=== PATIENT | female | born 1980 | race Caucasian/White ===

== ENCOUNTER 2016-07-20 04:55 | Emergency (ER) | payer OTHER ==
--- NOTE | 2016-07-20 07:03 | EDDOCDS ---
Physician Documentation [facility] Name: Rosemarie Kelly Age: 36 yrs Sex: Female : 1980 Arrival Date: 07/20/2016 Time: 04:55 Bed 18 Private MD: Disposition: 07/20/16 06:52 Discharged to Home/Self Care. Impression: Radiculopathy, cervical region. - Condition is Stable. - Discharge Instructions: Cervical Radiculopathy, Uwik-gh-Qkex. - Prescriptions for Diclofenac Sodium 75 mg Oral Tablet, Delayed Release (E.C.) - take 1 tablet by ORAL route 2 times per day; 30 tablet. Robaxin- 750 750 mg Oral Tablet - take 1 tablet by ORAL route every 6 hours As needed; 40 tablet. - Medication Reconciliation, Local Pharmacy Hours form. - [facility] up[facility]; When: Call to arrange an appointment; Reason: Further diagnostic work-up, Recheck today's complaints, Continuance of care, To establish care. - Problem is new. - Symptoms are unchanged. Historical: - Allergies: SULFA (SULFONAMIDES) (Rash); - Home Meds: 1. none - PMHx: none; - PSHx: (2004); Hernia repair; left knee; - Social history: Smoking status: Patient states was never smoker of tobacco. No barriers to communication noted, The patient speaks fluent Faroese, Speaks appropriately for age. - Family history: Not pertinent. - : The pt / caregiver states he / she is not on anticoagulants. Home medication list is obtained from the patient. - Exposure Risk Screening:: None identified. 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 4 in. (162.56 cm) (R); Pain 8/10; 06:59 BP 130 / 78; Pulse 80; Resp 18; Temp 97.4; Pulse Ox 98% ; Pain 7/10; ko2 05:06 Body Mass Index 37.76 (99.79 kg, 162.56 cm) [facility] [place] Signatures: Ivanna Kunz, RN RN g1 Omero Tyler PA PA btw Jasmin Yung,RN RN ko2 MTDD
--- NOTE | 2016-07-20 07:04 | EDDOCDS ---
Nurse's Notes [facility] Name: Rosemarie Kelly Age: 36 yrs Sex: Female : 1980 Arrival Date: 07/20/2016 Time: 04:55 Bed 18 Private MD: Diagnosis: Radiculopathy, cervical region Presentation: 07/20 05:05 Presenting complaint: Patient states: Pain in left arm from shoulder down to fingers. kmg1 Started last evening. Suicide/Homicide risk assessment- the patient denies having any suicidal and/or homicidal ideations and does not present with any other emotional, behavioral or mental health complaints. Status: Patient is not a director of career services or dependent. Transition of care: patient was not received from another setting of care. 05:05 Acuity: WILI Level 5 km 05:05 Method Of Arrival: Walkin/Carried/Asstd km 05:11 Adult Sepsis Screening: The patient does not have new or worsening altered mentation. kmg1 Patient's respiratory rate is less than 22. Systolic blood pressure is greater than 100. Patient has a qSOFA score of 0- Negative Sepsis Screen. Triage Assessment: 05:06 General: Appears uncomfortable, Behavior is appropriate for age, cooperative, pleasant. kmg1 Pain: Location: left scapular area and anterior aspect of left shoulder Pain currently is 8 out of 10 on a pain scale. Pain radiates to left arm Quality of pain is described as sharp, shooting, pulsating. HIV screening NA for this visit Offered previously. Neurological: Level of Consciousness is awake, alert. Musculoskeletal: Reports pain in left arm. 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 none - PMHx: none; - PSHx: (2004); Hernia repair; left knee; - Social history: Smoking status: Patient states was never smoker of tobacco. No barriers to communication noted, The patient speaks fluent Albanian, Speaks appropriately for age. - Family history: Not pertinent. - : The pt / caregiver states he / she is not on anticoagulants. Home medication list is obtained from the patient. - Exposure Risk Screening:: None identified. Screenin:01 Screening information is obtained from the patient. Screening information is obtained ko2 from the patient. Fall risk: No risks identified. Assistance ADL's: requires no assistance with activities of daily living. Abuse/DV Screen: The patient / caregiver reports he/she is: not in a situation that causes fear, pain or injury. Nutritional screening: No deficits noted. Advance Directives: Currently, there is no health care proxy. There is no active DNR order. There is no living will. There is no Power of Field Service Engineer. home support is adequate. Assessment: 05:27 General: Appears uncomfortable, Behavior is cooperative. Pain: Location: left arm and ko2 back and anterior aspect of left shoulder and left scapular area Pain currently is 8 out of 10 on a pain scale. Neurological: Level of Consciousness is awake, alert, Oriented to person, place, time. Respiratory: Airway is patent Respiratory effort is even, unlabored. Derm: Skin is normal. 07:01 General: Appears uncomfortable, Behavior is cooperative. Pain: Pain currently is 7 out ko2 of 10 on a pain scale. Neurological: Level of Consciousness is awake, alert. Respiratory: Airway is patent Respiratory effort is even, unlabored. Derm: Skin is normal. Vital Signs: 05:06 BP 140 / 79; Pulse 85; Resp 18; Temp 97.7(TE); Pulse Ox 97% on R/A; Weight 99.79 kg [facility] [place] (R); Height 5 ft. 4 in. (162.56 cm) (R); Pain 8/10; 06:59 BP 130 / 78; Pulse 80; Resp 18; Temp 97.4; Pulse Ox 98% ; Pain 7/10; ko2 05:06 Body Mass Index 37.76 (99.79 kg, 162.56 cm) [facility] [place] Vitals: 05:06 Log In Time: July 20, 2016 at 04:55. [facility] [place] ED Course: 04:56 Patient visited by Teresa Kaufman. [facility] 04:56 Patient moved to Waiting [facility] 05:06 Triage Initiated [facility] [place] 05:12 Jasmin Yung RN is Primary Nurse. km 05:12 Patient moved to 18 km 05:51 Patient visited by Jasmin Yung RN. ko2 06:45 Omero Tyler PA is PHCP. btw 06:45 Umang Stokes DO is Attending Physician. btw 06:46 Patient visited by Omero Tyler PA. btw 06:[address] [facility] is Referral Physician. btw 07:02 The patient / caregiver is instructed regarding the plan of care and ED course. ko2 07:02 No IV's were initiated during this patient's visit. No procedures done that require ko2 assistance. Order Results: There are currently no results for this order. Outcome: 06:52 Discharge ordered by Provider. btw 07:02 Discharge Assessment: Patient awake, alert and oriented x 3. No cognitive and/or ko2 functional deficits noted. Patient verbalized understanding of disposition instructions. patient administered narcotics - yes. The following High Risk Discharge criteria are identified: None. Discharged to home ambulatory, with friend. Condition: stable. Discharge instructions given to patient, Instructed on discharge instructions, follow up and referral plans. medication usage, Demonstrated understanding of instructions, medications, Pt was receptive of discharge instructions/ teaching. No special radiology studies were completed. Property sent home with patient. 07:03 Patient left the ED. ko2 Signatures: Ivanna Kunz RN RN kmg1 Omero Tyler PA PA btJasmin Ang RN RN ko2 [facility]
--- NOTE | 2016-07-22 08:04 | EDDOCDS ---
Physician Documentation [facility] Name: Rosemarie Kelly Age: 36 yrs Sex: Female : 1980 Arrival Date: 07/20/2016 Time: 04:55 Bed 18 Private MD: Disposition: 07/20/16 06:52 Discharged to Home/Self Care. Impression: Radiculopathy, cervical region. - Condition is Stable. - Discharge Instructions: Cervical Radiculopathy, Ncny-lg-Crep. - Prescriptions for Diclofenac Sodium 75 mg Oral Tablet, Delayed Release (E.C.) - take 1 tablet by ORAL route 2 times per day; 30 tablet. Robaxin- 750 750 mg Oral Tablet - take 1 tablet by ORAL route every 6 hours As needed; 40 tablet. - Medication Reconciliation, Local Pharmacy Hours form. - Follow up: [facility]; When: Call to arrange an appointment; Reason: Further diagnostic work-up, Recheck today's complaints, Continuance of care, To establish care. - Problem is new. - Symptoms are unchanged. Historical: - Allergies: SULFA (SULFONAMIDES) (Rash); - Home Meds: 1. none - PMHx: none; - PSHx: (2004); Hernia repair; left knee; - Social history: Smoking status: Patient states was never smoker of tobacco. No barriers to communication noted, The patient speaks fluent Belarusian, Speaks appropriately for age. - Family history: Not pertinent. - : The pt / caregiver states he / she is not on anticoagulants. Home medication list is obtained from the patient. - Exposure Risk Screening:: None identified. 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 4 in. (162.56 cm) (R); Pain 8/10; 06:59 BP 130 / 78; Pulse 80; Resp 18; Temp 97.4; Pulse Ox 98% ; Pain 7/10; ko2 05:06 Body Mass Index 37.76 (99.79 kg, 162.56 cm) [facility] [place] MDM: 07:14 [facility] Payment Agreement was scanned into [employer] and attached to record. pm4 13:07 T-Sheet-- Draft Copy was scanned into [employer] and attached to record. gb Signatures: Ivanna Kunz, AMAYA RN kmg1 Rebecca Nicole, Reg Reg gb Omero Tyler PA PA btw Ogden, Kari, RN RN ko2 Grant Adhikari, Reg Reg pm4 The chart was reviewed and I authenticate all verbal orders and agree with the evaluation and treatment provided.Attachments: 07:14 [facility] Payment Agreement pm4 13:07 T-Sheet-- Draft Copy gb Chart Complete MTDD
--- NOTE | 2016-07-22 08:04 | EDDOCDS ---
Physician Documentation [facility] Name: Rosemarie Kelly Age: 36 yrs Sex: Female : 1980 Arrival Date: 07/20/2016 Time: 04:55 Bed 18 Private MD: Disposition: 07/20/16 06:52 Discharged to Home/Self Care. Impression: Radiculopathy, cervical region. - Condition is Stable. - Discharge Instructions: Cervical Radiculopathy, Znxr-[id number]. - Prescriptions for Diclofenac Sodium 75 mg Oral Tablet, Delayed Release (E.C.) - take 1 tablet by ORAL route 2 times per day; 30 tablet. Robaxin- 750 750 mg Oral Tablet - take 1 tablet by ORAL route every 6 hours As needed; 40 tablet. - Medication Reconciliation, Local Pharmacy Hours form. - Follow up: [facility]; When: Call to arrange an appointment; Reason: Further diagnostic work-up, Recheck today's complaints, Continuance of care, To establish care. - Problem is new. - Symptoms are unchanged. Historical: - Allergies: SULFA (SULFONAMIDES) (Rash); - Home Meds: 1. none - PMHx: none; - PSHx: (2004); Hernia repair; left knee; - Social history: Smoking status: Patient states was never smoker of tobacco. No barriers to communication noted, The patient speaks fluent Hungarian, Speaks appropriately for age. - Family history: Not pertinent. - : The pt / caregiver states he / she is not on anticoagulants. Home medication list is obtained from the patient. - Exposure Risk Screening:: None identified. 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 4 in. (162.56 cm) (R); Pain 8/10; 06:59 BP 130 / 78; Pulse 80; Resp 18; Temp 97.4; Pulse Ox 98% ; Pain 7/10; ko2 05:06 Body Mass Index 37.76 (99.79 kg, 162.56 cm) [facility] [place] MDM: 07:14 [facility] Payment Agreement was scanned into [employer] and attached to record. pm4 13:07 T-Sheet-- Draft Copy was scanned into [employer] and attached to record. gb Signatures: Ivanna Kunz, AMAYA RN kmg1 Rebecca Nicole, Reg Reg gb Omero Tyler PA PA btw Ogden, Kari, RN RN ko2 Grant Adhikari, Reg Reg pm4 The chart was reviewed and I authenticate all verbal orders and agree with the evaluation and treatment provided.Attachments: 07:14 [facility] Payment Agreement pm4 13:07 T-Sheet-- Draft Copy gb Chart Complete MTDD
--- NOTE | 2016-07-22 08:04 | EDDOCDS ---
Nurse's Notes [facility] Name: Rosemarie Kelly Age: 36 yrs Sex: Female : 1980 Arrival Date: 07/20/2016 Time: 04:55 Bed 18 Private MD: Diagnosis: Radiculopathy, cervical region Presentation: 07/20 05:05 Presenting complaint: Patient states: Pain in left arm from shoulder down to fingers. kmg1 Started last evening. Suicide/Homicide risk assessment- the patient denies having any suicidal and/or homicidal ideations and does not present with any other emotional, behavioral or mental health complaints. Status: Patient is not a access services librarian or dependent. Transition of care: patient was not received from another setting of care. 05:05 Acuity: WILI Level 5 km 05:05 Method Of Arrival: Walkin/Carried/Asstd km 05:11 Adult Sepsis Screening: The patient does not have new or worsening altered mentation. kmg1 Patient's respiratory rate is less than 22. Systolic blood pressure is greater than 100. Patient has a qSOFA score of 0- Negative Sepsis Screen. Triage Assessment: 05:06 General: Appears uncomfortable, Behavior is appropriate for age, cooperative, pleasant. kmg1 Pain: Location: left scapular area and anterior aspect of left shoulder Pain currently is 8 out of 10 on a pain scale. Pain radiates to left arm Quality of pain is described as sharp, shooting, pulsating. HIV screening NA for this visit Offered previously. Neurological: Level of Consciousness is awake, alert. Musculoskeletal: Reports pain in left arm. 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 none - PMHx: none; - PSHx: (2004); Hernia repair; left knee; - Social history: Smoking status: Patient states was never smoker of tobacco. No barriers to communication noted, The patient speaks fluent Upper Sorbian, Speaks appropriately for age. - Family history: Not pertinent. - : The pt / caregiver states he / she is not on anticoagulants. Home medication list is obtained from the patient. - Exposure Risk Screening:: None identified. Screenin:01 Screening information is obtained from the patient. Screening information is obtained ko2 from the patient. Fall risk: No risks identified. Assistance ADL's: requires no assistance with activities of daily living. Abuse/DV Screen: The patient / caregiver reports he/she is: not in a situation that causes fear, pain or injury. Nutritional screening: No deficits noted. Advance Directives: Currently, there is no health care proxy. There is no active DNR order. There is no living will. There is no Power of Technical Support Agent. home support is adequate. Assessment: 05:27 General: Appears uncomfortable, Behavior is cooperative. Pain: Location: left arm and ko2 back and anterior aspect of left shoulder and left scapular area Pain currently is 8 out of 10 on a pain scale. Neurological: Level of Consciousness is awake, alert, Oriented to person, place, time. Respiratory: Airway is patent Respiratory effort is even, unlabored. Derm: Skin is normal. 07:01 General: Appears uncomfortable, Behavior is cooperative. Pain: Pain currently is 7 out ko2 of 10 on a pain scale. Neurological: Level of Consciousness is awake, alert. Respiratory: Airway is patent Respiratory effort is even, unlabored. Derm: Skin is normal. Vital Signs: 05:06 BP 140 / 79; Pulse 85; Resp 18; Temp 97.7(TE); Pulse Ox 97% on R/A; Weight 99.79 kg [facility] [place] (R); Height 5 ft. 4 in. (162.56 cm) (R); Pain 8/10; 06:59 BP 130 / 78; Pulse 80; Resp 18; Temp 97.4; Pulse Ox 98% ; Pain 7/10; ko2 05:06 Body Mass Index 37.76 (99.79 kg, 162.56 cm) [facility] [place] Vitals: 05:06 Log In Time: July 20, 2016 at 04:55. [facility] [place] ED Course: 04:56 Patient visited by Teresa Kaufman. [facility] 04:56 Patient moved to Waiting [facility] 05:06 Triage Initiated [facility] [place] 05:12 Jasmin Yung RN is Primary Nurse. km 05:12 Patient moved to 18 km 05:51 Patient visited by Jasmin Yung RN. ko2 06:45 Omero Tyler PA is PHCP. btw 06:45 Umang Stokes DO is Attending Physician. btw 06:46 Patient visited by Omero Tyler PA. btw 06:51 [facility] is Referral Physician. btw 07:02 The patient / caregiver is instructed regarding the plan of care and ED course. ko2 07:02 No IV's were initiated during this patient's visit. No procedures done that require ko2 assistance. 07:14 [facility] Payment Agreement was scanned into [employer] and attached to record. pm4 13:07 T-Sheet-- Draft Copy was scanned into [employer] and attached to record. gb Order Results: There are currently no results for this order. Outcome: 06:52 Discharge ordered by Provider. btw 07:02 Discharge Assessment: Patient awake, alert and oriented x 3. No cognitive and/or ko2 functional deficits noted. Patient verbalized understanding of disposition instructions. patient administered narcotics - yes. The following High Risk Discharge criteria are identified: None. Discharged to home ambulatory, with friend. Condition: stable. Discharge instructions given to patient, Instructed on discharge instructions, follow up and referral plans. medication usage, Demonstrated understanding of instructions, medications, Pt was receptive of discharge instructions/ teaching. No special radiology studies were completed. Property sent home with patient. 07:03 Patient left the ED. ko2 Signatures: Ivanna Kunz, RN RN kmg1 Rebecca Nicole, Reg Reg gb Omero Tyler PA PA btw Ogden, KariRN RN malinda2 Teresa Kaufman Paul, Reg Reg pm4 Chart Complete MTDD
== END 2016-07-20 07:03 | disposition home or self-care (01) ==
LOC: M ED 04:55
DX: M54.12 Radiculopathy, cervical region (principal); Z88.2 Allergy status to sulfonamides

== ENCOUNTER 2018-09-27 15:34 | Emergency (ER) | payer OTHER ==
[~2018-09-27] VITALS: Ht 162.6 cm; Wt 104.5 kg
[2018-09-27 15:34] VITALS: BP 186/90
[2018-09-27] MEDS ORDERED: MORPHINE 10 MG/ML 1ML VIAL (J2270) IM ONE (16:30)
[2018-09-27] MEDS ORDERED: METHOCARBAMOL 500 MG TAB PO ONE (16:30)
[2018-09-27] MEDS ORDERED: IBUP-1022 PO (17:00)
[2018-09-27] MEDS ORDERED: diphenhydrAMINE 50 MG CAP PO ONE (17:00)
[2018-09-27] MEDS ORDERED: ROBA500T PO (17:00)
== END 2018-09-27 17:25 | disposition home or self-care (01) ==
LOC: M ED 15:34
DX: S39.012A Strain of muscle, fascia and tendon of lower back, initial encounter (principal); X58.XXXA Exposure to other specified factors, initial encounter; Y92.89 Other specified places as the place of occurrence of the external cause; Z88.2 Allergy status to sulfonamides
CPT/HCPCS: 81001; 81025; 96372; 99283; J2270

== ENCOUNTER 2018-11-15 11:19 | Emergency (ER) | payer OTHER ==
[~2018-11-15] VITALS: Ht 162.6 cm; Wt 107.2 kg
[~2018-11-15 11:19] MED LIST: IBUP-1022 PO; ROBA500T PO
[2018-11-15] MEDS ORDERED: NAPROXEN 250 MG TAB PO ONE (13:00)
--- NOTE | 2018-11-15 13:43 | REP ---
RIGHT FOOT, FOUR VIEWS: There is no evidence of an acute fracture, dislocation or intrinsic bone disease. There is moderate posterior calcaneal spurring. IMPRESSION: No fracture or dislocation. Electronically Signed by Magdiel Prado MD 11/16/2018 03:27 P
[2018-11-15] MEDS ORDERED: MOBI4TAB PO (14:05)
[2018-11-15 14:17] VITALS: BP 148/69
== END 2018-11-15 14:36 | disposition home or self-care (01) ==
LOC: M ED 11:19
DX: M77.31 Calcaneal spur, right foot (principal); M25.571 Pain in right ankle and joints of right foot; X58.XXXA Exposure to other specified factors, initial encounter; Y92.511 Restaurant or cafe as the place of occurrence of the external cause; Y93.02 Activity, running; F17.200 Nicotine dependence, unspecified, uncomplicated; Z88.2 Allergy status to sulfonamides

== ENCOUNTER → 2019-11-22 | Outpatient (REF) | payer OTHER ==
[~2019-11-22] MED LIST changes: +IBUP80TA PO; +MEDR4PAK PO; +MOBI4TAB PO
[2019-11-22 20:06] LABS: CHLAMYDIA DNA AMPLIFICATION NEGATIVE (NEGATIVE); GC DNA AMPLIFICATION NEGATIVE (NEGATIVE)
== END ==
LOC: M WUC 15:45
PROVIDERS: ATTEND Physician Assistant
DX: R31.9 Hematuria, unspecified (principal); R11.2 Nausea with vomiting, unspecified; Z11.59 Encounter for screening for other viral diseases
CPT/HCPCS: 87086; 87491; 87591; U0003

== ENCOUNTER 2019-12-04 15:38 | Emergency (ER) | payer OTHER ==
[~2019-12-04] VITALS: Ht 160 cm; Wt 113.5 kg
[2019-12-04 15:38] VITALS: BP 157/94
[~2019-12-04 15:38] MED LIST changes: -IBUP80TA PO; -MEDR4PAK PO
[2019-12-04] MEDS ORDERED: IBUP80TA PO (16:22)
[2019-12-04] MEDS ORDERED: MEDR4PAK PO (16:22)
== END 2019-12-04 16:36 | disposition home or self-care (01) ==
LOC: M ED 15:38
DX: M72.2 Plantar fascial fibromatosis (principal); Z88.2 Allergy status to sulfonamides

== ENCOUNTER 2021-02-10 15:34 | Emergency (ER) | payer OTHER ==
[~2021-02-10] VITALS: Ht 162.6 cm; Wt 112.2 kg
[~2021-02-10 15:34] MED LIST changes: +IBUP80TA PO; +MEDR4PAK PO
[2021-02-10] MEDS ORDERED: GUAI1TAB72 PO (17:17)
[2021-02-10] MEDS ORDERED: ACETAMINOPHEN 500 MG TAB PO ONE (23:05)
[2021-02-10] MEDS ORDERED: NS 1,000 ML IV ONE (23:05)
[2021-02-10 23:40] VITALS: O2SAT 98
[2021-02-10 23:57] LABS: INR 0.98; PROTHROMBIN TIME 13.4 SECONDS (12.7-14.5)
[2021-02-10 23:58] LABS: PARTIAL THROMBOPLASTIN TIME 28.3 SECONDS (25.9-37.0)
[2021-02-11 00:01] LABS: D-DIMER QUANT < 270 ng/ml (<500)
[2021-02-11 00:14] LABS: BASO % 0.6 % (0.0-1.0); EOS % 0.3 % (0.0-3.0); HEMATOCRIT 44.7 % (36.0-47.0); HEMOGLOBIN 14.6 g/dl (12.0-15.5); LYMPH # 1.4 10^3/uL (1.5-5.0); LYMPH % 20.1 % (24.0-44.0); MEAN CORPUSCULAR HEMOGLOBIN 29.6 pg (27.0-33.0); MEAN CORPUSCULAR HGB CONC 32.7 g/dl (32.0-36.5); MEAN CORPUSCULAR VOLUME 90.7 fl (80.0-96.0); MONO # 0.4 10^3/uL (0.0-0.8); MONO % 6.4 % (2.0-8.0); NEUTROPHILS # 4.8 10^3/uL (1.5-8.5); NEUTROPHILS % 71.9 % (36.0-66.0); PLATELET COUNT, AUTOMATED 259 10^3/uL (150-450); RED BLOOD COUNT 4.93 10^6/uL (4.00-5.40); WHITE BLOOD COUNT 6.7 10^3/uL (4.0-10.0)
[2021-02-11 00:15] LABS: ALT/SGPT 57 U/L (12-78); BILIRUBIN,TOTAL 0.5 MG/DL (0.2-1.0); BLOOD UREA NITROGEN 12 MG/DL (7-18); CALCIUM LEVEL 8.7 MG/DL (8.5-10.1); CARBON DIOXIDE LEVEL 28 MEQ/L (21-32); CHLORIDE LEVEL 103 MEQ/L (98-107); CK-MB VALUE MASS < 1.0 NG/ML (<3.6); CPK CREATINE PHOSPHOKINASE 85 U/L (26-192); CREATININE FOR GFR 0.96 MG/DL (0.55-1.30); GLOMERULAR FILTRATION RATE > 60.0 (>60); GLUCOSE, FASTING 87 MG/DL (70-100); MB/CK RELATIVE INDEX 1.18 (< OR =4); POTASSIUM SERUM 4.6 MEQ/L (3.5-5.1); SODIUM LEVEL 136 MEQ/L (136-145); TOTAL PROTEIN 8.1 GM/DL (6.4-8.2); TROPONIN I < 0.02 NG/ML (< 0.10)
--- NOTE | 2021-02-11 01:09 | REPVR ---
PROCEDURE INFORMATION: Exam: XR Chest Exam date and time: 02/10/2021 11:59 PM Age: 41 years old Clinical indication: Cough and shortness of breath; Additional info: chest pain TECHNIQUE: Imaging protocol: XR of the chest. Views: 2 views. COMPARISON: CT ABD PELVIS W/O CONTRAST 02/29/2016 10:37 AM FINDINGS: Lungs: There are subtle patchy airspace opacities in both lungs. Pleural spaces: Unremarkable. No pleural effusion. No pneumothorax. Heart/Mediastinum: Unremarkable. No cardiomegaly. Bones/joints: Unremarkable. IMPRESSION: Subtle patchy airspace opacities in both lungs, which may represent pneumonia. Electronically signed by: Darian Carver On 02/11/2021 01:08:47 AM
[2021-02-11 01:56] VITALS: BP 138/79
--- NOTE | 2021-02-11 05:57 | ECGEPIP ---
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
== END 2021-02-11 02:55 | disposition home or self-care (01) ==
LOC: M ED 15:34
DX: U07.1 COVID-19 (principal); J12.82 Pneumonia due to coronavirus disease 2019; R10.9 Unspecified abdominal pain; Z88.2 Allergy status to sulfonamides

== ENCOUNTER → 2022-04-13 | Outpatient (CLI) | payer OTHER ==
[~2022-04-13] MED LIST changes: +GUAI1TAB72 PO
[2022-04-13 12:57] LABS: BASO # 0.1 10^3/uL (0.0-0.2); BASO % 0.7 % (0.0-1.0); EOS # 0.2 10^3/uL (0.0-0.5); EOS % 2.3 % (0.0-3.0); HEMATOCRIT 41.8 % (36.0-47.0); HEMOGLOBIN 13.3 g/dl (12.0-15.5); LYMPH # 2.6 10^3/uL (1.5-5.0); LYMPH % 29.1 % (24.0-44.0); MEAN CORPUSCULAR HEMOGLOBIN 29.8 pg (27.0-33.0); MEAN CORPUSCULAR HGB CONC 31.8 g/dl (32.0-36.5); MEAN CORPUSCULAR VOLUME 93.7 fl (80.0-96.0); MONO # 0.5 10^3/uL (0.0-0.8); MONO % 5.7 % (2.0-8.0); NEUTROPHILS # 5.6 10^3/uL (1.5-8.5); NEUTROPHILS % 61.6 % (36.0-66.0); PLATELET COUNT, AUTOMATED 309 10^3/uL (150-450); RED BLOOD COUNT 4.46 10^6/uL (4.00-5.40); WHITE BLOOD COUNT 9.1 10^3/uL (4.0-10.0)
[2022-04-13 13:40] LABS: ALBUMIN 3.8 GM/DL (3.2-5.2); ALT/SGPT 29 U/L (12-78); BILIRUBIN,TOTAL 0.3 MG/DL (0.2-1.0); BLOOD UREA NITROGEN 16 MG/DL (7-18); CALCIUM LEVEL 9.1 MG/DL (8.5-10.1); CARBON DIOXIDE LEVEL 30 MEQ/L (21-32); CHLORIDE LEVEL 105 MEQ/L (98-107); CHOLESTEROL LEVEL 203 MG/DL (<200); CHOLESTEROL RISK RATIO 4.319 (<5); CREATININE FOR GFR 0.81 MG/DL (0.55-1.30); FREE T4 0.87 NG/DL (0.76-1.46); GLOMERULAR FILTRATION RATE > 60.0 (>58); GLUCOSE, FASTING 101 MG/DL (70-100); HDL CHOLESTEROL 47 MG/DL (>40); LDL CHOLESTEROL 136 MG/DL (<100); NON-HDL-C 156 MG/DL; POTASSIUM SERUM 4.5 MEQ/L (3.5-5.1); SODIUM LEVEL 138 MEQ/L (136-145); TOTAL PROTEIN 7.6 GM/DL (6.4-8.2); TRIGLYCERIDES LEVEL 102 MG/DL (<150)
[2022-04-13 14:37] LABS: HEMOGLOBIN A1c 5.2 %
== END ==
LOC: M PLALAB 10:03
PROVIDERS: ATTEND Nurse Practitioner Family
DX: R63.5 Abnormal weight gain (principal); Z13.220 Encounter for screening for lipoid disorders; M25.561 Pain in right knee; Z13.1 Encounter for screening for diabetes mellitus

== ENCOUNTER → 2022-04-17 | Outpatient (CLI) | payer OTHER | LOC: MERGE 08:18 → M PLAIMG 08:18 | PROVIDERS: ATTEND Orthopaedic Surgery | DX: M23.306 Other meniscus derangements, unspecified meniscus, right knee (principal); M25.461 Effusion, right knee; R60.0 Localized edema ==

== ENCOUNTER → 2023-01-07 | Outpatient (CLI) | payer OTHER ==
[~2023-01-07] MED LIST changes: +ISOVUE-300 61% 100ML VIAL As Ordered ONE; +LIDOCAINE 1% MDV 20ML VIAL As Ordered ONE; +PROHANCE 279.3MG/ML 5ML VIAL As Ordered ONE
== END ==
LOC: M RAD 06:51
PROVIDERS: ATTEND Physician Assistant
DX: S60.221D Contusion of right hand, subsequent encounter (principal)
CPT/HCPCS: 25246; 73223; 77002; A9576; Q9967

== ENCOUNTER → 2023-09-27 | Outpatient (CLI) | payer OTHER ==
[~2023-09-27] MED LIST changes: -ISOVUE-300 61% 100ML VIAL As Ordered ONE; -LIDOCAINE 1% MDV 20ML VIAL As Ordered ONE; -PROHANCE 279.3MG/ML 5ML VIAL As Ordered ONE
[2023-09-27 13:34] LABS: BASO # 0.1 10^3/uL (0.0-0.2); BASO % 0.8 % (0.0-1.0); EOS # 0.2 10^3/uL (0.0-0.5); EOS % 3.1 % (0.0-3.0); HEMATOCRIT 40.3 % (36.0-47.0); HEMOGLOBIN 12.9 g/dl (12.0-15.5); LYMPH # 2.3 10^3/uL (1.5-5.0); LYMPH % 31.4 % (24.0-44.0); MEAN CORPUSCULAR HEMOGLOBIN 29.9 pg (27.0-33.0); MEAN CORPUSCULAR VOLUME 93.5 fl (80.0-96.0); MONO # 0.7 10^3/uL (0.0-0.8); MONO % 8.9 % (2.0-8.0); NEUTROPHILS # 4.1 10^3/uL (1.5-8.5); NEUTROPHILS % 55.5 % (36.0-66.0); PLATELET COUNT, AUTOMATED 297 10^3/uL (150-450); RED BLOOD COUNT 4.31 10^6/uL (4.00-5.40); WHITE BLOOD COUNT 7.4 10^3/uL (4.0-10.0)
[2023-09-27 13:41] LABS: ALBUMIN 3.6 G/DL (3.2-5.2); ALKALINE PHOSPHATASE 69 U/L (46-116); ALT/SGPT 14 U/L (7.0-40); AST/SGOT 16 U/L (<34); BILIRUBIN,TOTAL 0.3 MG/DL (0.3-1.2); BLOOD UREA NITROGEN 18 MG/DL (9-23); CARBON DIOXIDE LEVEL 30 MMOL/L (20-31); CHLORIDE LEVEL 104 MMOL/L (98-107); CHOLESTEROL LEVEL 143 MG/DL (<200); CHOLESTEROL RISK RATIO 3.19 (<5); GLOMERULAR FILTRATION RATE > 60.0 (>58); GLUCOSE, FASTING 93 MG/DL (60-100); HDL CHOLESTEROL 44.7 MG/DL (>40); LDL CHOLESTEROL 84.1 MG/DL (<100); NON-HDL-C 98.3 MG/DL; POTASSIUM SERUM 4.5 MMOL/L (3.5-5.1); SODIUM LEVEL 136 MMOL/L (136-145); TOTAL PROTEIN 6.7 G/DL (5.7-8.2); TRIGLYCERIDES LEVEL 71 MG/DL (<150)
[2023-09-27 13:43] LABS: FREE T4 0.91 NG/DL (0.89-1.76); THYROID STIMULATING HORMONE 2.272 uIU/ML (0.55-4.78)
[2023-09-27 14:01] LABS: HEMOGLOBIN A1c 5.1 % (4.0-6.0)
== END ==
LOC: M PLALAB 09:12
PROVIDERS: ATTEND Nurse Practitioner Family
DX: E78.2 Mixed hyperlipidemia (principal); Z13.1 Encounter for screening for diabetes mellitus; R53.83 Other fatigue

== ENCOUNTER → 2023-09-30 | Outpatient (CLI) | payer OTHER | LOC: M RAD 12:55 | PROVIDERS: ATTEND Nurse Practitioner Family | DX: R10.31 Right lower quadrant pain (principal); N20.0 Calculus of kidney ==

== ENCOUNTER → 2025-03-16 | Outpatient (CLI) | payer OTHER ==
[~2025-03-16] MED LIST changes: -IBUP-1022 PO; +IBUP600T42 PO
[2025-03-16 14:17] LABS: BASO # 0.1 10^3/uL (0.0-0.2); BASO % 1.0 % (0.0-1.0); EOS # 0.2 10^3/uL (0.0-0.5); EOS % 2.1 % (0.0-3.0); LYMPH # 2.5 10^3/uL (1.5-5.0); LYMPH % 26.6 % (24.0-44.0); MONO # 0.6 10^3/uL (0.0-0.8); MONO % 6.6 % (2.0-8.0); NEUTROPHILS # 5.8 10^3/uL (1.5-8.5); NEUTROPHILS % 63.3 % (36.0-66.0); PLATELET COUNT, AUTOMATED 279 10^3/uL (150-450)
[2025-03-16 14:24] LABS: ALT/SGPT 44.0 U/L (7.0-40); AST/SGOT 23.0 U/L (<34); CALCIUM LEVEL 9.5 MG/DL (8.5-10.1); CARBON DIOXIDE LEVEL 29.0 MMOL/L (20-31); CHLORIDE LEVEL 104.0 MMOL/L (98-107); CHOLESTEROL LEVEL 177.0 MG/DL (<200); CHOLESTEROL RISK RATIO 3.61 (<5); CREATININE FOR GFR 0.92 MG/DL (0.55-1.30); GLOMERULAR FILTRATION RATE 79.2 (>58); LDL CHOLESTEROL 109.9 MG/DL (<100); MAGNESIUM LEVEL 1.9 MG/DL (1.8-2.4); NON-HDL-C 128.1 MG/DL; POTASSIUM SERUM 4.4 MMOL/L (3.5-5.1); SODIUM LEVEL 142.0 MMOL/L (136-145); TRIGLYCERIDES LEVEL 91.0 MG/DL (<150)
[2025-03-16 14:25] LABS: FREE T4 1.04 NG/DL (0.89-1.76)
[2025-03-16 14:26] LABS: TOTAL 25(OH) VITAMIN D 30.3 NG/ML (20.0-100.0)
== END ==
LOC: M PLAIMG 08:39
PROVIDERS: ATTEND Nurse Practitioner Family
DX: E78.2 Mixed hyperlipidemia (principal); M25.561 Pain in right knee; M54.50 Low back pain, unspecified; M25.511 Pain in right shoulder; I10 Essential (primary) hypertension; E55.9 Vitamin D deficiency, unspecified; R53.83 Other fatigue; M17.11 Unilateral primary osteoarthritis, right knee; M19.011 Primary osteoarthritis, right shoulder

== ENCOUNTER 2025-04-16 18:54 | Emergency (ER) | payer OTHER ==
[~2025-04-16] VITALS: Ht 162.6 cm; Wt 126.4 kg
[2025-04-16] MEDS ORDERED: LISI10TA22 (19:00)
[2025-04-16] MEDS ORDERED: MELO15TA28 (19:00)
[2025-04-16 20:11] LABS: BASO # 0.1 10^3/uL (0.0-0.2); BASO % 0.5 % (0.0-1.0); EOS # 0.2 10^3/uL (0.0-0.5); EOS % 2.4 % (0.0-3.0); LYMPH # 2.9 10^3/uL (1.5-5.0); LYMPH % 30.3 % (24.0-44.0); MONO # 0.6 10^3/uL (0.0-0.8); MONO % 6.7 % (2.0-8.0); NEUTROPHILS # 5.7 10^3/uL (1.5-8.5); NEUTROPHILS % 59.9 % (36.0-66.0); PLATELET COUNT, AUTOMATED 325 10^3/uL (150-450)
[2025-04-16 20:25] LABS: INR 0.91
[2025-04-16 20:43] LABS: ALT/SGPT 43 U/L (7.0-40); AST/SGOT 36 U/L (<34); CALCIUM LEVEL 9.2 MG/DL (8.5-10.1); CARBON DIOXIDE LEVEL 23 MMOL/L (20-31); CHLORIDE LEVEL 105 MMOL/L (98-107); CREATININE FOR GFR 1.08 MG/DL (0.55-1.30); GLOMERULAR FILTRATION RATE 65.4 (>58); POTASSIUM SERUM 4.8 MMOL/L (3.5-5.1); SODIUM LEVEL 141 MMOL/L (136-145)
[2025-04-16 23:11] VITALS: TEMP 97
[2025-04-16] MEDS ORDERED: ISOVUE-370 76% 100 ML VIAL As Ordered ONE (23:41)
[2025-04-17] MEDS: GI COCKTAIL 50 ML BTL(HYOSCYAMINE/MAALOX/LIDOCAINE VISCOUS)(1:3:1) PO ONE (00:25)
[2025-04-17] MEDS: PANTOPRAZOLE 40MG VIAL IV ONE (00:27)
[2025-04-17 04:30] VITALS: BP 139/68; O2SAT 96
== END 2025-04-17 05:25 | disposition home or self-care (01) ==
LOC: M ED 18:54
DX: K62.5 Hemorrhage of anus and rectum (principal); K76.0 Fatty (change of) liver, not elsewhere classified; I10 Essential (primary) hypertension; Z88.2 Allergy status to sulfonamides
CPT/HCPCS: 74174; 80048; 80076; 83690; 85025; 85384; 85610; 85730; 86850; 86900; 86901; 93041; 96374; 99285; J2470; Q9967